=== PATIENT | male | born 1940 | race Caucasian/White ===

== ENCOUNTER 2024-01-16 14:45 | Outpatient (CLI) | payer MEDICARE, OTHER | END 2024-01-16 14:46 | disposition home or self-care (01) | LOC: CSHWCC 14:45 | PROVIDERS: ATTEND Nurse Practitioner Family | DX: L89.313 Pressure ulcer of right buttock, stage 3 (principal); I50.22 Chronic systolic (congestive) heart failure | CPT/HCPCS: 11042 ==

== ENCOUNTER 2024-01-23 15:35 | Outpatient (CLI) | payer MEDICARE, OTHER | END 2024-01-23 15:36 | disposition home or self-care (01) | LOC: CSHWCC 15:35 | PROVIDERS: ATTEND Family Medicine | DX: L89.313 Pressure ulcer of right buttock, stage 3 (principal); I50.22 Chronic systolic (congestive) heart failure | CPT/HCPCS: 11042 ==

== ENCOUNTER 2024-01-30 15:56 | Outpatient (CLI) | payer MEDICARE, OTHER | END 2024-01-30 15:57 | disposition home or self-care (01) | LOC: CSHWCC 15:56 | PROVIDERS: ATTEND Nurse Practitioner Family | DX: L89.313 Pressure ulcer of right buttock, stage 3 (principal); I50.22 Chronic systolic (congestive) heart failure | CPT/HCPCS: 11042 ==

== ENCOUNTER 2024-02-13 14:16 | Outpatient (CLI) | payer MEDICARE, OTHER | END 2024-02-13 14:17 | disposition home or self-care (01) | LOC: CSHWCC 14:16 | PROVIDERS: ATTEND Nurse Practitioner Family | DX: L89.313 Pressure ulcer of right buttock, stage 3 (principal); I50.22 Chronic systolic (congestive) heart failure | CPT/HCPCS: 99212; G0463 ==